=== PATIENT | male | born 1970 | race Caucasian/White ===

== ENCOUNTER 2024-08-08 16:00 | Emergency (ER) | payer BC ==
[~2024-08-08] VITALS: Ht 188 cm; Wt 97.5 kg
[2024-08-08 16:48] VITALS: BP 110/77; TEMP 98.4; O2SAT 98
== END 2024-08-08 16:48 | disposition home or self-care (01) ==
LOC: ER 16:00
DX: S61.213A Laceration without foreign body of left middle finger without damage to nail, initial encounter (principal); W26.8XXA Contact with other sharp object(s), not elsewhere classified, initial encounter; Y93.89 Activity, other specified; Y92.89 Other specified places as the place of occurrence of the external cause; Y99.8 Other external cause status